=== PATIENT | female | born 1960 | race Caucasian/White ===

== ENCOUNTER 2018-11-30 18:57 | Inpatient (IN) ==
[2018-11-30] MEDS ORDERED: SODIUM CHLORIDE 0.9% 1,000 ML IV STA (19:27)
[2018-11-30 19:51] LABS: Acetaminophen 283.7 UG/ML (10-30); Salicylate 67.1 MG/DL (2.8-20)
[2018-11-30 19:55] LABS: Basophils # 0.1 10*3/uL (0.0-0.2); Basophils % 0.4 % (0.0-0.8); Eosinophils # 0.4 10*3/uL (0.0-0.87); Eosinophils % 2.6 % (0.00-10.9); Hematocrit 42.5 VOL% (35.7-47.0); Hemoglobin 13.1 GM/DL (12.0-16.0); Immature Granulocytes % 1.8 %; Immature Granulocytes Absolute 0.25 #; Lymphocytes # 4.9 10*3/uL (1.4-4.0); Lymphocytes % 34.7 % (21.3-54.2); Mean Corpuscular HGB Conc 30.8 GM/DL (32-36); Mean Corpuscular Volume 85.3 FL (87-102); Mean Platelet Volume 10.9 FL (9.6-12.0); Monocytes % 5.6 % (1.7-12.7); Neutrophils % 54.9 % (38.7-73.9); Platelet Count 289 T/CUMM (130-400); Red Blood Count 4.98 MC/CUMM (3.8-5.5); Red Cell Distribution Width 15.2 % (9.3-17.3)
[2018-11-30 19:59] LABS: Alanine Aminotransferase 26 U/L (13-56); Albumin 3.9 G/DL (3.4-5.0); Alkaline Phosphatase 176 U/L (45-117); Aspartate Amino Transferase 29 U/L (0-37); Bilirubin,Total < 0.39 MG/DL (0.2-1.0); Blood Urea Nitrogen 15 MG/DL (7-18); Glucose 200 MG/DL (74-106); Osmolality,Calculated 289.1 MOS/KG (273-304); Total Protein 8.1 G/DL (6.4-8.3)
[2018-11-30] MEDS ORDERED: ACETYLCYSTEINE IV ONE ×2 (20:04→23:00)
[2018-11-30] MEDS ORDERED: DEXTROSE 5% IV ONE ×2 (20:04→23:00)
[2018-11-30 20:07] LABS: Apearance,Urine CLEAR (Clear); Bilirubin,Urine Negative (Negative); Blood, Urine Negative (Negative); Glucose,Urine (UA) 150 mg/dL (Negative); Ketones,Urine 5 mg/dL (Negative); Mucus,Urine Occasional /LPF (Occasional); Nitrite,Urine Negative (Negative); Protein,Urine Negative; RBC,Urine <1 /HPF (0-4); Squamous Epithelial Cell,Urine Occasional /HPF (0-10); Urine Color Straw (Yellow); Urine Specific Gravity 1.014 (1.001-1.035); Urine Urobilinogen < 2.0 EU/DL (0.2-1.0)
[2018-11-30 20:15] LABS: Barbiturates Screen,Urine Negative (Negative); Benzodiazepines Screen,Urine Negative (Negative); Cannabinoid Screen,Urine Negative (Negative); Opiate Screen,Urine Negative (Negative); Phencyclidine Screen,Urine Negative (Negative)
[2018-11-30 20:20] LABS: INR 0.9; PT Patient Result 9.9 SECS; Partial Thromboplastin Time 24.3 SECS (0-40)
[2018-11-30] MEDS ORDERED: ONDANSETRON 4 MG/2 ML VIAL IV PRN (20:45)
[2018-11-30] MEDS ORDERED: ACETYLCYSTEINE IV SCH (21:00)
[2018-11-30] MEDS ORDERED: DEXTROSE 5% IV SCH (21:00)
[2018-11-30] MEDS ORDERED: DOCUSATE SODIUM 100 MG CAPSULE PO SCH (21:00)
[2018-11-30] MEDS: ONDANSETRON 4 MG/2 ML VIAL IV PRN (21:15)
[2018-11-30] MEDS ORDERED: THIAMINE INJ 100 MG, FOLIC ACID INJ 1 MG, MAGNESIUM SULF INJ 2 GM, MULTIVITAMIN INJ 10 ... IV ONE (21:49)
[2018-11-30] MEDS: DOCUSATE SODIUM 100 MG CAPSULE PO SCH (22:03)
[2018-11-30 23:50] LABS: Alanine Aminotransferase 22 U/L (13-56); Albumin 3.4 G/DL (3.4-5.0); Alkaline Phosphatase 135 U/L (45-117); Aspartate Amino Transferase 24 U/L (0-37); Bilirubin,Total < 0.39 MG/DL (0.2-1.0); Blood Urea Nitrogen 12 MG/DL (7-18); Calcium 7.1 MG/DL (8.5-10.1); Glucose 468 MG/DL (74-106); Osmolality,Calculated 316.1 MOS/KG (273-304)
[2018-12-01] MEDS: INSULIN REGULAR 100 UNIT/ML SUBCUT SCH ×2 (02:44→19:18)
[2018-12-01] MEDS ORDERED: DEXTROSE 5% IV ONE (03:23)
[2018-12-01] MEDS ORDERED: ACETYLCYSTEINE IV ONE (03:23)
[2018-12-01 03:38] LABS: Alanine Aminotransferase 33 U/L (13-56); Albumin 3.9 G/DL (3.4-5.0); Alkaline Phosphatase 167 U/L (45-117); Aspartate Amino Transferase 27 U/L (0-37); Bilirubin,Total < 0.39 MG/DL (0.2-1.0); Blood Urea Nitrogen 14 MG/DL (7-18); Calcium 8.3 MG/DL (8.5-10.1); Glucose 172 MG/DL (74-106); Osmolality,Calculated 287.1 MOS/KG (273-304); Total Protein 8.4 G/DL (6.4-8.3)
[2018-12-01] MEDS ORDERED: SODIUM BICARBONATE 10 MEQ/10 ML SYRINGE IV ONE (09:49)
[2018-12-01] MEDS ORDERED: ALPRAZolam 0.5 MG TABLET PO PRN (09:50)
[2018-12-01] MEDS ORDERED: SODIUM CHLORIDE 0.45% 1,000 ML IV SCH (10:00)
[2018-12-01] MEDS: PANTOPRAZOLE 40 MG VIAL IV SCH (10:20)
[2018-12-01] MEDS: DOCUSATE SODIUM 100 MG CAPSULE PO SCH ×2 (10:22→21:41)
[2018-12-01] MEDS: ONDANSETRON 4 MG/2 ML VIAL IV PRN ×2 (11:08→16:06)
[2018-12-01 11:25] LABS: Alanine Aminotransferase 30 U/L (13-56); Albumin 3.7 G/DL (3.4-5.0); Alkaline Phosphatase 156 U/L (45-117); Aspartate Amino Transferase 43 U/L (0-37); Bilirubin,Total < 0.39 MG/DL (0.2-1.0); Blood Urea Nitrogen 15 MG/DL (7-18); Calcium 8.2 MG/DL (8.5-10.1); Glucose 140 MG/DL (74-106); Osmolality,Calculated 283.3 MOS/KG (273-304)
[2018-12-01] MEDS ORDERED: ALPRAZolam 0.5 MG TABLET PO ONE (18:33)
[2018-12-01] MEDS: SODIUM BICARB INJ 50 MEQ in SODIUM CHLORIDE 0.45% 1,000 ML IV SCH (19:13)
[2018-12-01 19:35] LABS: Albumin 3.5 G/DL (3.4-5.0); Bilirubin,Total 0.5 MG/DL (0.2-1.0); Calcium 8.7 MG/DL (8.5-10.1); Osmolality,Calculated 278.5 MOS/KG (273-304); Total Protein 7.8 G/DL (6.4-8.3)
[2018-12-01] MEDS ORDERED: METOPROLOL TARTRATE 25 MG TABLET PO ONE (21:16)
[2018-12-01] MEDS: ALPRAZolam 0.5 MG TABLET PO SCH (21:41)
[2018-12-02 03:02] LABS: Basophils % 0.1 % (0.0-0.8); Hematocrit 41.9 VOL% (35.7-47.0); Hemoglobin 12.9 GM/DL (12.0-16.0); Immature Granulocytes % 0.7 %; Lymphocytes # 1.6 10*3/uL (1.4-4.0); Lymphocytes % 10.7 % (21.3-54.2); Mean Corpuscular HGB Conc 30.8 GM/DL (32-36); Mean Corpuscular Volume 82.5 FL (87-102); Mean Platelet Volume 10.2 FL (9.6-12.0); Monocytes % 4.5 % (1.7-12.7); Platelet Count 269 T/CUMM (130-400); Red Blood Count 5.08 MC/CUMM (3.8-5.5); Red Cell Distribution Width 15.5 % (9.3-17.3); White Blood Count 14.9 T/CUMM (4-12)
[2018-12-02 03:31] LABS: Alanine Aminotransferase 31 U/L (13-56); Albumin 3.4 G/DL (3.4-5.0); Alkaline Phosphatase 144 U/L (45-117); Aspartate Amino Transferase 63 U/L (0-37); Bilirubin,Total < 0.39 MG/DL (0.2-1.0); Blood Urea Nitrogen 12 MG/DL (7-18); Calcium 9.3 MG/DL (8.5-10.1); Glucose 87 MG/DL (74-106); Total Protein 7.3 G/DL (6.4-8.3)
[2018-12-02] MEDS: ONDANSETRON 4 MG/2 ML VIAL IV PRN ×5 (03:49→20:30)
[2018-12-02] MEDS: INSULIN REGULAR 100 UNIT/ML SUBCUT SCH ×3 (04:10→18:17)
[2018-12-02] MEDS: SODIUM BICARB INJ 50 MEQ in SODIUM CHLORIDE 0.45% 1,000 ML IV SCH ×2 (04:22→14:48)
[2018-12-02] MEDS: DOCUSATE SODIUM 100 MG CAPSULE PO SCH ×2 (08:06→20:29)
[2018-12-02] MEDS: METOPROLOL TARTRATE 25 MG TABLET PO SCH ×2 (08:06→20:29)
[2018-12-02] MEDS: ALPRAZolam 0.5 MG TABLET PO SCH ×3 (08:06→20:29)
[2018-12-02] MEDS: PANTOPRAZOLE 40 MG VIAL IV SCH (08:06)
[2018-12-02] MEDS ORDERED: ALPRAZolam 0.5 MG TABLET PO SCH (09:00)
[2018-12-02] MEDS ORDERED: POTASSIUM CHLORIDE 20 MEQ TABLET PO SCH (09:00)
[2018-12-02 11:14] LABS: Alanine Aminotransferase 32 U/L (13-56); Albumin 3.4 G/DL (3.4-5.0); Alkaline Phosphatase 142 U/L (45-117); Aspartate Amino Transferase 57 U/L (0-37); Bilirubin,Total < 0.39 MG/DL (0.2-1.0); Blood Urea Nitrogen 12 MG/DL (7-18); Calcium 9.2 MG/DL (8.5-10.1); Glucose 99 MG/DL (74-106); Osmolality,Calculated 282.1 MOS/KG (273-304); Total Protein 7.1 G/DL (6.4-8.3)
[2018-12-02] MEDS ORDERED: POTASSIUM CHLORIDE 20 MEQ TABLET PO ONE (13:58)
[2018-12-02] MEDS: TEMAZEPAM 15 MG CAPSULE PO SCH (20:29)
[2018-12-02] MEDS: POTASSIUM CHLORIDE 20 MEQ TABLET PO SCH (20:29)
[2018-12-02 20:39] LABS: Albumin 3.2 G/DL (3.4-5.0); Bilirubin,Total 0.4 MG/DL (0.2-1.0); Calcium 8.9 MG/DL (8.5-10.1); Osmolality,Calculated 286.8 MOS/KG (273-304); Total Protein 6.4 G/DL (6.4-8.3)
[2018-12-02] MEDS: MORPHINE 4 MG/1 ML VIAL IV PRN ×2 (22:41)
[2018-12-03 02:55] LABS: Alanine Aminotransferase 29 U/L (13-56); Alkaline Phosphatase 127 U/L (45-117); Aspartate Amino Transferase 44 U/L (0-37); Bilirubin,Total < 0.39 MG/DL (0.2-1.0); Blood Urea Nitrogen 15 MG/DL (7-18); Calcium 9.1 MG/DL (8.5-10.1); Glucose 88 MG/DL (74-106); Osmolality,Calculated 285.8 MOS/KG (273-304); Total Protein 6.2 G/DL (6.4-8.3)
[2018-12-03] MEDS: ONDANSETRON 4 MG/2 ML VIAL IV PRN ×4 (03:28→21:31)
[2018-12-03] MEDS: INSULIN REGULAR 100 UNIT/ML SUBCUT SCH ×3 (03:28→17:59)
[2018-12-03 04:04] LABS: Hepatitis B Core IgM Quant < 0.05 Index; Hepatitis B Surface Ag Quant < 0.10 Index; Hepatitis B Surface Ag Result Negative (Negative); Hepatitis C Virus Ab Quant 0.04 Index; Hepatitis C Virus Ab Result Negative (Negative)
[2018-12-03] MEDS: METOPROLOL TARTRATE 25 MG TABLET PO SCH (09:03)
[2018-12-03] MEDS: ALPRAZolam 0.5 MG TABLET PO SCH (09:03)
[2018-12-03] MEDS: POTASSIUM CHLORIDE 20 MEQ TABLET PO SCH ×2 (09:03→21:17)
[2018-12-03] MEDS: PANTOPRAZOLE 40 MG VIAL IV SCH (09:04)
[2018-12-03] MEDS: DOCUSATE SODIUM 100 MG CAPSULE PO SCH ×2 (09:04→21:18)
[2018-12-03 11:08] LABS: Alanine Aminotransferase 28 U/L (13-56); Albumin 3.1 G/DL (3.4-5.0); Alkaline Phosphatase 124 U/L (45-117); Aspartate Amino Transferase 35 U/L (0-37); Bilirubin,Total < 0.39 MG/DL (0.2-1.0); Blood Urea Nitrogen 15 MG/DL (7-18); Calcium 8.6 MG/DL (8.5-10.1); Glucose 73 MG/DL (74-106); Osmolality,Calculated 287.7 MOS/KG (273-304); Total Protein 6.3 G/DL (6.4-8.3)
[2018-12-03] MEDS ORDERED: QUEtiapine XR 50 MG TABLET PO SCH ×3 (11:30→22:30)
[2018-12-03 19:27] LABS: Alanine Aminotransferase 30 U/L (13-56); Albumin 3.2 G/DL (3.4-5.0); Alkaline Phosphatase 141 U/L (45-117); Aspartate Amino Transferase 37 U/L (0-37); Bilirubin,Total < 0.39 MG/DL (0.2-1.0); Blood Urea Nitrogen 16 MG/DL (7-18); Calcium 8.9 MG/DL (8.5-10.1); Glucose 73 MG/DL (74-106); Total Protein 6.8 G/DL (6.4-8.3)
[2018-12-03] MEDS: TEMAZEPAM 15 MG CAPSULE PO SCH (21:18)
[2018-12-03] MEDS: MORPHINE 4 MG/1 ML VIAL IV PRN (21:30)
[2018-12-04 02:30] LABS: Basophils % 0.4 % (0.0-0.8); Eosinophils # 0.2 10*3/uL (0.0-0.87); Eosinophils % 3.2 % (0.00-10.9); Hematocrit 34.6 VOL% (35.7-47.0); Hemoglobin 10.6 GM/DL (12.0-16.0); Immature Granulocytes % 0.2 %; Immature Granulocytes Absolute 0.01 #; Lymphocytes # 1.8 10*3/uL (1.4-4.0); Lymphocytes % 33.7 % (21.3-54.2); Mean Corpuscular HGB Conc 30.6 GM/DL (32-36); Mean Corpuscular Volume 84.2 FL (87-102); Mean Platelet Volume 11.1 FL (9.6-12.0); Monocytes % 6.4 % (1.7-12.7); Neutrophils % 56.1 % (38.7-73.9); Platelet Count 188 T/CUMM (130-400); Red Blood Count 4.11 MC/CUMM (3.8-5.5); Red Cell Distribution Width 15.7 % (9.3-17.3); White Blood Count 5.3 T/CUMM (4-12)
[2018-12-04 02:53] LABS: Albumin 3.1 G/DL (3.4-5.0); Bilirubin,Total 0.4 MG/DL (0.2-1.0); Calcium 8.4 MG/DL (8.5-10.1); Osmolality,Calculated 287.7 MOS/KG (273-304); Total Protein 6.2 G/DL (6.4-8.3)
[2018-12-04] MEDS: INSULIN REGULAR 100 UNIT/ML SUBCUT SCH ×3 (06:28→21:37)
[2018-12-04] MEDS: METOPROLOL SUCCINATE XL 25 MG TABLET PO SCH (08:05)
[2018-12-04] MEDS: DOCUSATE SODIUM 100 MG CAPSULE PO SCH ×2 (08:06→20:59)
[2018-12-04] MEDS: PANTOPRAZOLE 40 MG VIAL IV SCH (08:06)
[2018-12-04] MEDS: TOPIRAMATE 25 MG TABLET PO SCH (08:06)
[2018-12-04] MEDS: POTASSIUM CHLORIDE 20 MEQ TABLET PO SCH ×2 (08:06→20:58)
[2018-12-04] MEDS ORDERED: ALPRAZolam 0.5 MG TABLET PO SCH (09:00)
[2018-12-04] MEDS ORDERED: ALPRAZolam 0.25 MG TABLET PO SCH (09:00)
[2018-12-04 11:28] LABS: Bilirubin,Total 0.7 MG/DL (0.2-1.0); Calcium 8.4 MG/DL (8.5-10.1); Osmolality,Calculated 287.7 MOS/KG (273-304); Total Protein 5.9 G/DL (6.4-8.3)
[2018-12-04] MEDS: ONDANSETRON 4 MG/2 ML VIAL IV PRN ×2 (11:51→20:58)
[2018-12-04] MEDS ORDERED: chlorproMAZINE INJ 25 MG in SODIUM CHLORIDE 0.9% 100 ML IV ONE (21:00)
[2018-12-05] MEDS: INSULIN REGULAR 100 UNIT/ML SUBCUT SCH (02:27)
[2018-12-05] MEDS: ONDANSETRON 4 MG/2 ML VIAL IV PRN ×2 (04:51→12:50)
[2018-12-05 04:54] LABS: Basophils % 0.4 % (0.0-0.8); Eosinophils # 0.3 10*3/uL (0.0-0.87); Hematocrit 34.1 VOL% (35.7-47.0); Hemoglobin 10.5 GM/DL (12.0-16.0); Immature Granulocytes % 0.4 %; Immature Granulocytes Absolute 0.02 #; Lymphocytes # 1.8 10*3/uL (1.4-4.0); Lymphocytes % 37.9 % (21.3-54.2); Mean Corpuscular HGB Conc 30.8 GM/DL (32-36); Mean Corpuscular Volume 85.7 FL (87-102); Mean Platelet Volume 11.4 FL (9.6-12.0); Monocytes % 7.9 % (1.7-12.7); Neutrophils % 47.4 % (38.7-73.9); Platelet Count 206 T/CUMM (130-400); Red Blood Count 3.98 MC/CUMM (3.8-5.5); Red Cell Distribution Width 15.6 % (9.3-17.3); White Blood Count 4.7 T/CUMM (4-12)
[2018-12-05 05:10] LABS: Calcium 8.6 MG/DL (8.5-10.1); Osmolality,Calculated 287.7 MOS/KG (273-304)
[2018-12-05] MEDS: PANTOPRAZOLE 40 MG VIAL IV SCH (09:12)
[2018-12-05] MEDS: METOPROLOL SUCCINATE XL 25 MG TABLET PO SCH (09:12)
[2018-12-05] MEDS: POTASSIUM CHLORIDE 20 MEQ TABLET PO SCH ×2 (09:12→21:06)
[2018-12-05] MEDS: TOPIRAMATE 25 MG TABLET PO SCH ×2 (09:13→21:07)
[2018-12-05] MEDS: DOCUSATE SODIUM 100 MG CAPSULE PO SCH ×2 (09:13→21:06)
[2018-12-05] MEDS: QUEtiapine 100 MG TABLET PO SCH ×2 (09:13→21:07)
[2018-12-06 08:25] VITALS: BP 132/81
[2018-12-06] MEDS: PANTOPRAZOLE 40 MG VIAL IV SCH (08:27)
[2018-12-06] MEDS: DOCUSATE SODIUM 100 MG CAPSULE PO SCH (08:28)
[2018-12-06] MEDS: POTASSIUM CHLORIDE 20 MEQ TABLET PO SCH (08:28)
[2018-12-06] MEDS: TOPIRAMATE 25 MG TABLET PO SCH (08:28)
[2018-12-06] MEDS: QUEtiapine 100 MG TABLET PO SCH (08:28)
[2018-12-06] MEDS: METOPROLOL SUCCINATE XL 25 MG TABLET PO SCH (08:29)
== END 2018-12-06 10:04 | disposition home or self-care (01) | DRG 917 ==
LOC: EDUNIT# → EDBD → N.EDINP 18:57 → N.ED 18:57 → N.ICU 12-01 11:47 → N.TELES 12-02 22:16
PROVIDERS: ADMIT Internal Medicine; ATTEND Internal Medicine

== ENCOUNTER 2021-09-02 17:07 | Inpatient (IN) ==
[2021-09-03 01:00] LABS: Basophils # 0.1 10*3/uL (0.0-0.2); Basophils % 0.7 % (0.0-0.8); Eosinophils # 0.1 10*3/uL (0.0-0.87); Eosinophils % 1.4 % (0.00-10.9); Hematocrit 36.4 VOL% (35.7-47.0); Hemoglobin 11.6 GM/DL (12.0-16.0); Immature Granulocytes % 0.7 %; Immature Granulocytes Absolute 0.05 #; Lymphocytes % 27.3 % (21.3-54.2); Mean Corpuscular HGB Conc 31.9 GM/DL (32-36); Mean Corpuscular Volume 81.4 FL (87-102); Mean Platelet Volume 11.4 FL (9.6-12.0); Monocytes % 7.8 % (1.7-12.7); Neutrophils % 62.1 % (38.7-73.9); Platelet Count 332 T/CUMM (130-400); Red Blood Count 4.47 MC/CUMM (3.8-5.5); Red Cell Distribution Width 17.1 % (9.3-17.3); White Blood Count 7.4 T/CUMM (4-12)
[2021-09-03 01:35] LABS: Albumin 3.2 G/DL (3.4-5.0); Bilirubin,Total 0.4 MG/DL (0.20-1.00); Calcium 8.9 MG/DL (8.5-10.1); Osmolality,Calculated 274.5 MOS/KG (273-304); Total Protein 6.6 G/DL (6.4-8.2)
[2021-09-03] MEDS ORDERED: POTASSIUM CHLORIDE 20 MEQ TABLET PO STA (01:45)
[2021-09-03 03:00] LABS: Bilirubin,Urine Negative (Negative); Blood, Urine Negative (Negative); Glucose,Urine (UA) Negative (Negative); Ketones,Urine 20 mg/dL (Negative); Mucus,Urine Occasional /LPF (Occasional); Nitrite,Urine Negative (Negative); Protein,Urine Negative; RBC,Urine 1 /HPF (0-4); Squamous Epithelial Cell,Urine Occasional /HPF (0-10); Urine Appearance CLEAR (Clear); Urine Color Yellow (Yellow); Urine Specific Gravity 1.009 (1.001-1.035)
[2021-09-03] MEDS ORDERED: ONDANSETRON 4 MG/2 ML VIAL IV PRN (04:08)
[2021-09-03] MEDS ORDERED: ACETAMINOPHEN 325 MG TABLET PO PRN (04:08)
[2021-09-03] MEDS ORDERED: DEXT 5% NACL 0.45% KCL 40 MEQ 40 MEQ/1,000 ML BAG IV SCH ×2 (04:30→06:00)
[2021-09-03 08:08] LABS: Barbiturates Screen,Urine Negative (Negative); Benzodiazepines Screen,Urine Negative (Negative); Cannabinoid Screen,Urine Negative (Negative); Opiate Screen,Urine Negative (Negative); Phencyclidine Screen,Urine Negative (Negative)
[2021-09-03 08:17] LABS: Folate 8.76 NG/ML (5.38-24.0)
[2021-09-03] MEDS: QUEtiapine 100 MG TABLET PO SCH ×2 (08:58→20:54)
[2021-09-03] MEDS: PANTOPRAZOLE 40 MG VIAL IV SCH (08:58)
[2021-09-03] MEDS ORDERED: PANTOPRAZOLE 40 MG TABLET PO SCH (09:00)
[2021-09-03] MEDS: AMITRIPTYLINE 100 MG TABLET PO SCH (20:54)
[2021-09-04] MEDS: PANTOPRAZOLE 40 MG VIAL IV SCH (09:05)
[2021-09-04] MEDS: QUEtiapine 100 MG TABLET PO SCH ×2 (09:05→23:12)
[2021-09-04] MEDS ORDERED: POTASSIUM CHLORIDE 20 MEQ TABLET PO PRN (15:42)
[2021-09-04 17:33] LABS: Basophils # 0.1 10*3/uL (0.0-0.2); Basophils % 0.5 % (0.0-0.8); Eosinophils # 0.2 10*3/uL (0.0-0.87); Eosinophils % 1.6 % (0.00-10.9); Hematocrit 36.9 VOL% (35.7-47.0); Hemoglobin 11.8 GM/DL (12.0-16.0); Immature Granulocytes % 0.6 %; Immature Granulocytes Absolute 0.06 #; Lymphocytes # 2.3 10*3/uL (1.4-4.0); Lymphocytes % 24.1 % (21.3-54.2); Mean Corpuscular Volume 81.6 FL (87-102); Mean Platelet Volume 11.3 FL (9.6-12.0); Monocytes % 7.8 % (1.7-12.7); Neutrophils % 65.4 % (38.7-73.9); Platelet Count 344 T/CUMM (130-400); Red Blood Count 4.52 MC/CUMM (3.8-5.5); Red Cell Distribution Width 17.4 % (9.3-17.3); White Blood Count 9.5 T/CUMM (4-12)
[2021-09-04] MEDS: FOLIC ACID 1 MG TABLET PO SCH (17:45)
[2021-09-04] MEDS: SODIUM CHLORIDE 0.9% 1,000 ML IV SCH (17:45)
[2021-09-04] MEDS: CHOLECALCIFEROL 1,000 UNIT TABLET PO SCH (17:45)
[2021-09-04 17:53] LABS: Albumin 2.7 G/DL (3.4-5.0); Bilirubin,Total 0.5 MG/DL (0.20-1.00); Calcium 8.5 MG/DL (8.5-10.1); Osmolality,Calculated 273.7 MOS/KG (273-304); Potassium 3.5 MMOL/L (3.5-5.1); Total Protein 6.4 G/DL (6.4-8.2)
[2021-09-04] MEDS: POTASSIUM CHLORIDE 20 MEQ TABLET PO SCH (23:12)
[2021-09-04] MEDS: AMITRIPTYLINE 100 MG TABLET PO SCH (23:12)
[2021-09-05 05:41] LABS: Basophils % 0.6 % (0.0-0.8); Eosinophils # 0.2 10*3/uL (0.0-0.87); Eosinophils % 2.4 % (0.00-10.9); Hematocrit 35.8 VOL% (35.7-47.0); Hemoglobin 11.3 GM/DL (12.0-16.0); Immature Granulocytes % 0.9 %; Immature Granulocytes Absolute 0.06 #; Lymphocytes # 1.5 10*3/uL (1.4-4.0); Lymphocytes % 21.7 % (21.3-54.2); Mean Corpuscular HGB Conc 31.6 GM/DL (32-36); Mean Corpuscular Volume 82.5 FL (87-102); Mean Platelet Volume 11.4 FL (9.6-12.0); Monocytes % 8.2 % (1.7-12.7); Neutrophils % 66.2 % (38.7-73.9); Platelet Count 289 T/CUMM (130-400); Red Blood Count 4.34 MC/CUMM (3.8-5.5); Red Cell Distribution Width 17.2 % (9.3-17.3); White Blood Count 6.7 T/CUMM (4-12)
[2021-09-05 05:50] LABS: Albumin 2.4 G/DL (3.4-5.0); Bilirubin,Total 0.4 MG/DL (0.20-1.00); Calcium 8.4 MG/DL (8.5-10.1); Osmolality,Calculated 272.7 MOS/KG (273-304); Potassium 3.7 MMOL/L (3.5-5.1)
[2021-09-05] MEDS: SODIUM CHLORIDE 0.9% 1,000 ML IV SCH (08:07)
[2021-09-05] MEDS: FOLIC ACID 1 MG TABLET PO SCH (08:08)
[2021-09-05] MEDS: CHOLECALCIFEROL 1,000 UNIT TABLET PO SCH (08:08)
[2021-09-05] MEDS: POTASSIUM CHLORIDE 20 MEQ TABLET PO SCH ×2 (08:08→21:18)
[2021-09-05] MEDS: PANTOPRAZOLE 40 MG VIAL IV SCH (08:09)
[2021-09-05] MEDS: QUEtiapine 100 MG TABLET PO SCH ×2 (08:11→21:19)
[2021-09-05] MEDS: AMITRIPTYLINE 100 MG TABLET PO SCH (21:18)
[2021-09-06] MEDS: SODIUM CHLORIDE 0.9% 1,000 ML IV SCH ×2 (03:00→21:01)
[2021-09-06] MEDS: PANTOPRAZOLE 40 MG TABLET PO SCH (06:15)
[2021-09-06 06:48] LABS: Basophils % 0.6 % (0.0-0.8); Eosinophils # 0.2 10*3/uL (0.0-0.87); Eosinophils % 3.1 % (0.00-10.9); Hematocrit 39.3 VOL% (35.7-47.0); Immature Granulocytes % 0.8 %; Immature Granulocytes Absolute 0.05 #; Lymphocytes # 1.5 10*3/uL (1.4-4.0); Lymphocytes % 24.2 % (21.3-54.2); Mean Corpuscular HGB Conc 30.5 GM/DL (32-36); Mean Platelet Volume 11.4 FL (9.6-12.0); Monocytes % 6.9 % (1.7-12.7); Neutrophils % 64.4 % (38.7-73.9); Platelet Count 291 T/CUMM (130-400); Red Blood Count 4.68 MC/CUMM (3.8-5.5); Red Cell Distribution Width 17.4 % (9.3-17.3); White Blood Count 6.2 T/CUMM (4-12)
[2021-09-06 07:10] LABS: Albumin 2.3 G/DL (3.4-5.0); Bilirubin,Total 0.6 MG/DL (0.20-1.00); Calcium 8.4 MG/DL (8.5-10.1); Osmolality,Calculated 273.5 MOS/KG (273-304); Potassium 4.1 MMOL/L (3.5-5.1); Total Protein 6.3 G/DL (6.4-8.2)
[2021-09-06] MEDS: QUEtiapine 100 MG TABLET PO SCH ×2 (09:05→21:02)
[2021-09-06] MEDS: POTASSIUM CHLORIDE 20 MEQ TABLET PO SCH ×2 (09:05→21:02)
[2021-09-06] MEDS: FOLIC ACID 1 MG TABLET PO SCH (09:06)
[2021-09-06] MEDS: CHOLECALCIFEROL 1,000 UNIT TABLET PO SCH (09:06)
[2021-09-06] MEDS: MULTIVITAMIN (CENTRUM) TABLET PO SCH (09:06)
[2021-09-06] MEDS ORDERED: CYANOCOBALAMIN 1000 MCG/1 ML VIAL IM ONE (16:43)
[2021-09-06] MEDS ORDERED: ERGOCALCIFEROL 50,000 UNIT CAPSULE PO ONE (16:45)
[2021-09-06] MEDS: ALBUMIN 25% 25 GM/100 ML VIAL IV SCH (19:17)
[2021-09-06] MEDS ORDERED: TAMSULOSIN 0.4 MG CAPSULE PO SCH (21:00)
[2021-09-06] MEDS: AMITRIPTYLINE 100 MG TABLET PO SCH (21:02)
[2021-09-07] MEDS: ALBUMIN 25% 25 GM/100 ML VIAL IV SCH ×2 (02:34→09:16)
[2021-09-07] MEDS: PANTOPRAZOLE 40 MG TABLET PO SCH (06:00)
[2021-09-07 06:03] LABS: Basophils % 0.4 % (0.0-0.8); Eosinophils # 0.2 10*3/uL (0.0-0.87); Eosinophils % 3.5 % (0.00-10.9); Hematocrit 32.1 VOL% (35.7-47.0); Immature Granulocytes % 0.5 %; Immature Granulocytes Absolute 0.03 #; Lymphocytes # 1.5 10*3/uL (1.4-4.0); Lymphocytes % 27.6 % (21.3-54.2); Mean Corpuscular HGB Conc 30.8 GM/DL (32-36); Mean Corpuscular Volume 83.6 FL (87-102); Mean Platelet Volume 11.5 FL (9.6-12.0); Monocytes % 6.2 % (1.7-12.7); Neutrophils % 61.8 % (38.7-73.9); Platelet Count 245 T/CUMM (130-400); Red Blood Count 3.84 MC/CUMM (3.8-5.5); Red Cell Distribution Width 17.2 % (9.3-17.3); White Blood Count 5.5 T/CUMM (4-12)
[2021-09-07 06:06] LABS: Hemoglobin 9.9 GM/DL (12.0-16.0)
[2021-09-07 06:09] LABS: Albumin 2.8 G/DL (3.4-5.0); Bilirubin,Total 1.5 MG/DL (0.20-1.00); Calcium 8.3 MG/DL (8.5-10.1); Osmolality,Calculated 278.3 MOS/KG (273-304); Potassium 3.7 MMOL/L (3.5-5.1); Total Protein 5.8 G/DL (6.4-8.2)
[2021-09-07] MEDS ORDERED: THIAMINE 100 MG TABLET PO SCH (09:00)
[2021-09-07] MEDS: POTASSIUM CHLORIDE 20 MEQ TABLET PO SCH (09:08)
[2021-09-07] MEDS: QUEtiapine 100 MG TABLET PO SCH (09:08)
[2021-09-07] MEDS: MULTIVITAMIN (CENTRUM) TABLET PO SCH (09:08)
[2021-09-07] MEDS: FOLIC ACID 1 MG TABLET PO SCH (09:08)
[2021-09-07] MEDS: CHOLECALCIFEROL 1,000 UNIT TABLET PO SCH (09:08)
[2021-09-07] MEDS: SODIUM CHLORIDE 0.9% 1,000 ML IV SCH (09:16)
[2021-09-07 13:07] VITALS: BP 100/62
== END 2021-09-07 15:44 | disposition home or self-care (01) | DRG 641 ==
LOC: N.ED 17:07 → N.EDINP 17:07 → N.5E 09-04 17:00
PROVIDERS: ADMIT Internal Medicine; ATTEND Internal Medicine